=== PATIENT | female | born 1945 | race Caucasian/White ===

== ENCOUNTER 2016-06-20 11:17 | Emergency (ER) | payer MEDICARE, OTHER ==
[~2016-06-20] VITALS: Ht 160 cm; Wt 57.2 kg
[~2016-06-20 11:17] MED LIST: BUDE0.5A ORAL INH; CALC-603 PO; CYAN1TAB46 PO; DILT120C47 PO; DOCU100C PO; GABA-336 PO; HYDR25CA PO; IPRA3AMP AEROSOL; OMEP40CA30 PO; UBID100C10 PO
[2016-06-20 11:18] VITALS: Ht 160 cm; Wt 57.2 kg
--- OUTSIDE RECORDS SUMMARY | 2016-06-20 11:29 | XMS REPORT | Continuity of Care Document ---
Author Author [facility] Organization [facility] Address Unknown Phone Unavailable Support Name Relationship Address Phone NEFTALI DHALIWAL Caregiver [address] [place] [address] Unavailable HUONG DINERO MD Caregiver [address] [place] [address] Unavailable GAYLASANDYON Next Of Kin [address] [place] [address] C Insurance Providers Guarantor Cleopatra Shukla Address [address] [place] [address] C Email [email or web address] [email or web address] Medicare Policy Number [id number] Subscriber's Name Cleopatra Shukla Relationship 18 Self Effective Date 12 [facility] Policy Number [id number] Subscriber's Name Cleopatra Shukla Relationship 18 Self Group Number [id number] Advance Directives Directive Response Recorded Date/Time Ordered Resuscitation Status Full Code 10/10/15 1:19pm Resuscitation Documents on File No 10/13/15 6:51am DPOA for Healthcare Only No 10/13/15 6:51am Living Will No 10/13/15 6:51am Problems Active Problems Medical Problem Onset Date Status Allergic dermatitis Unknown Acute Medications Current Home Medications Medication Dose Units Route Directions Days Qty Instructions Start Date Budesonide (Pulmicort) 0.5 Mg/2 Ml Inha 0.5 Mg Oral Inhalation Twice A Day 05/30/15 Calcium 500 Mg Tablet 500 Mg Oral Daily 06/15/12 Cyanocobalamin/Folic Acid (Vitamin Y40-Uewha Acid Tablet) 1 Each Tablet 1 Tab Oral Daily 05/30/15 Diltiazem Hcl (Cartia Xt) 120 Mg Cap.er.24h 120 Mg Oral Daily Docusate Sodium (Stool Softener) 100 Mg Capsule 100 Mg Oral Bedtime 05/30/15 Gabapentin 100 Mg Capsule 100 Mg Oral Bedtime 05/30/15 Hydroxyzine Pamoate (Vistaril) 25 Mg Capsule 1 Cap Oral Four Times Daily as needed for Itching 10 Capsule 05/30/15 Ipratropium/Albuterol Sulfate (Iprat-Albut 0.5-3(2.5) Mg/3 Ml) 3 Ml Ampul.neb 1 Unit Aerosol Tx. Twice A Day 05/30/15 Omeprazole (Prilosec) 40 Mg Capsule.dr 40 Mg Oral Daily 05/01/12 Ubidecarenone (Coq-10) 100 Mg Capsule 100 Mg Oral Daily 05/30/15 Past Home Medications Medication Directions Ordered Status Simvastatin 20 Mg Tablet, 20 Mg Oral Daily 03/24/10 Discontinued Social History Social History Problem Response Recorded Date/Time Onset Date Status Chewing Tobacco Status No 06/15/2012 9:44am Not Applicable Not Applicable Hx Substance Use No 10/13/2015 6:46am Not Applicable Not Applicable Hx Alcohol Use No 10/13/2015 6:46am Not Applicable Not Applicable Has the pt used tobacco in the last 12 months No 10/13/2015 6:46am Not Applicable Not Applicable Tobacco Usage none 05/30/2015 1:20pm Not Applicable Not Applicable Query Response Start Date Stop Date Smoking Status Former smoker Hospital Discharge Instructions No hospital discharge instructions. Plan of Care Discharge Date 10/13/15 9:10am Prescriptions See Medication Section Functional Status Query Response Date Recorded Ability to complete ADL's impeded by No change October 13, 2015 6:51am Allergies, Adverse Reactions, Alerts Allergen Type Severity Reaction Status Last Updated Aspirin Allergy Severe ANAPHYLACTIC SHOCK Active 05/30/15 Immunizations Query Response on File Recorded Date/Time Hx Influenza Vaccination Y DEC 2014 10/13/15 6:46am Hx Pneumococcal Vaccination Y 201310/13/15 6:46am Hx Tetanus, Diptheria, Pertussis NA 03/24/10 7:25am Hx Influenza Vaccination Y DEC 2014 10/13/15 6:46am Hx Tetanus, Diptheria, Pertussis NA 03/24/10 7:25am Influenza Vaccine Hx 201405/30/15 12:45pm Vital Signs Acute Vital Signs Vital Response Date/Time Temperature (Fahrenheit) 97.2 deg F (96.8 - 99.1) 10/13/2015 8:16am Temperature (Calculated Celsius) 36.07379 degrees C (36.0 - 37.3) 10/13/2015 8:16am Temperature Source Temporal 10/13/2015 8:16am Pulse Rate (adult) 80 bpm (60 - 100) 10/13/2015 9:00am Respiratory Rate 16 breaths/min (10 - 20) 10/13/2015 9:00am O2 Sat by Pulse Oximetry 92 % (90 - 100) 10/13/2015 9:00am Oxygen Delivery Method Room Air 10/13/2015 8:46am Oxygen Flow Rate 2.00 L/min 10/13/2015 8:30am Blood Pressure 111/78 mm Hg 10/13/2015 9:00am Blood Pressure Source Automatic Cuff 10/13/2015 8:56am Height (Feet) 5 feet 10/13/2015 6:25am Height (Inches) 3.00 inches 10/13/2015 6:25am Weight (Kilograms) 56.300 kg 10/13/2015 6:25am Body Mass Index (BMI) 22.0 10/13/2015 6:25am Results No known relevant diagnostic tests, laboratory data and/or discharge summary. Procedures Procedure Status Date Provider(s) DXA BONE DENSITY AXIAL Completed 09/25/15 Colonoscopy Completed 10/13/15 HUONG DINERO MD Encounters Encounter Location Arrival/Admit Date Discharge/Depart Date Attending Provider Departed [facility] 10/13/15 6:12am 10/13/15 9: 10am HUONG DINERO MD Registered Clinic [facility] 09/25/15 12:33pm NEFTALI DHALIWAL
--- OUTSIDE RECORDS SUMMARY | 2016-06-20 11:29 | XMS REPORT | Summary of Care ---
Author Author Yamilet Cornelius Organization Unknown Address [address], [place] [id number] Phone Unavailable Care Team Providers Care Baker Paint Name Role Phone Yamilet Cornelius Unavailable Unavailable Woodrow Padgett, Severo Unavailable Unavailable Naun Castaneda Unavailable Unavailable Unavailable Unavailable Functional Status Name Dates Details Functional status health issues are not documented Status: Name Dates Details Cognitive status health issues are not documented Status: Problems Name Dates Details Chronic obstructive pulmonary disease, unspecified COPD type (496, J44.9) Status: Active Restrictive lung disease (518.89, J98.4) Status: Active Nocturnal hypoxia (327.24, G47.34) Status: Active Medications Name Dates Details ProAir HFA 108 (90 Base) MCG/ACT Inhalation Aerosol Solution Jose Troy M.D. * Start 16-May-2015 Active Co Q 10 10 MG Oral Capsule * Refills: 0 Jose Troy M.D. Start 16-May-2015 Active Multi Vitamin Daily Oral Tablet * Refills: 0 Jose Troy M.D. Start 16-May-2015 Active Ipratropium-Albuterol 0.5-2.5 (3) MG/3ML Inhalation Solution INHALE 1 UNIT DOSE Daily PRN * Quantity: 1 Refills: 0 Yamilet Cornelius * Start 16-May-2015 Active 3 ML Plas Cont (30 Plas Conts) Neurontin 100 MG Oral Capsule * Refills: 0 Jose Troy M.D. Start 16-May-2015 Active Omeprazole 40 MG Oral Capsule Delayed Release * Refills: 0 Jose Troy M.D. Start 16-May-2015 Active Pulmicort 0.5 MG/2ML Inhalation Suspension * Refills: 0 Jose Troy M.D. Start 16-May-2015 Active Vitamin D3 2000 UNIT Oral Capsule * Refills: 0 Jose Troy M.D. Start 16-May-2015 Active Cartia XT 120 MG Oral Capsule Extended Release 24 Hour * Refills: 0 Jose Troy M.D. * Start 16-May-2015 Active Calcium 500 MG TABS TAKE 1 TABLET DAILY. * Refills: 0 Woodrow Padgett, Jose Elkins * Start 16-May-2015 Active Vitamin B-12 2500 MCG Sublingual Tablet Sublingual * Refills: 0 Woodrow Padgett, Jose Elkins * Start 16-May-2015 Active Brovana 15 MCG/2ML Inhalation Nebulization Solution use 1 vial in neb BID * Quantity: 1 Refills: 11 Jeannie P.A., Yamilet * Start 29-Apr-2016 Active 2 ML Plas Cont (60 Plas Conts) Allergies and Adverse Reactions Name Dates Details aspirin (Allergy) Status: Active Fluzone INJ (Allergy) Status: Active niacin (Allergy) Status: Active Procedures Procedure Dates Details History of Section History of Cholecystectomy Procedures not documented Immunization Name Dates Details Immunizations not documented Family History Name Dates Details Family history of malignant neoplasm (V16.9, Z80.9) Status: Active Family history of diabetes mellitus (V18.0, Z83.3) Status: Active Name Dates Details Family history of chronic obstructive pulmonary disease (V17.6, Z82.5) Status: Active Family history of congestive heart failure (V17.49, Z82.49) Status: Active Name Dates Details Family history of arthritis (V17.7, Z82.61) Status: Active Social History Name Dates Details - Status: Name Dates Details Former smoker Vital Signs Date Test Result Details 29-Apr-2016 10:27 BP Systolic 136 mm[Hg] Status: Comments: Location: ; Position: BP Diastolic 64 mm[Hg] Status: Comments: Location: ; Position: Heart Rate 84 /min Status: Comments: Location: ; Height 63 in Status: Weight 127 lb Status: Physical Findings 94 Status: Comments: O2 Saturation Body Mass Index Calculated 22.5 kg/m2 Status: Body Surface Area Calculated 1.59 m2 Status: Results Date Description Value Details Results not documented Plan of Care Name Dates Details Planned Observations Planned Goals not documented Planned Encounters Appointment; Provider: Capri Cadena A.P.R.N. On 22-Jul-2016 10:30 Interventions Provided Medication Changes* Brovana 15 MCG/2ML Inhalation Nebulization Solution - Start * Ipratropium-Albuterol 0.5-2.5 (3) MG/3ML Inhalation Solution - Renew with Changes Instructions Name Dates Details Instructions not documented Encounters Appointment; Jose Troy M.D. Encounter Diagnosis: Problem not documented On 18-Jul-2015 11:45 Appointment; Jose Troy M.D. Encounter Diagnosis: Problem not documented On 16-May-2015 14:00
--- OUTSIDE RECORDS SUMMARY | 2016-06-20 11:30 | XMS REPORT | Summary of Care ---
Author Author Jose Troy M.D. Organization Unknown Address [address], [place] [id number] Phone Unavailable Care Team Providers Care Business Administrator Name Role Phone Woodrow Padgett, O Unavailable Unavailable Naun Castaneda PP Unavailable Unavailable Unavailable Functional Status Functional Status Health Issues* Name Dates Details Functional status health issues are not documented Status: Cognitive Status Health Issues* Name Dates Details Cognitive status health issues are not documented Status: Problems Name Dates Details Restrictive lung disease (518.89, J98.4) Status: Active Chronic obstructive pulmonary disease, unspecified COPD type (496, J44.9) Status: Active Medications Name Dates Details ProAir HFA 108 (90 Base) MCG/ACT Inhalation Aerosol Solution Jose Troy M.D.* Started 16-May-2015 ActiveCo Q 10 10 MG Oral Capsule * Refills: 0 Jose Troy M.D.* Started 16-May-2015 ActiveMulti Vitamin Daily Oral Tablet * Refills: 0 Jose Troy M.D.* Started 16-May-2015 ActiveIpratropium-Albuterol 0.5-2.5 (3) MG/3ML Inhalation Solution * Refills: 0 Jose Troy M.D.* Started 16-May-2015 ActiveNeurontin 100 MG Oral Capsule * Refills: 0 Jose Troy M.D.* Started 16-May-2015 ActiveOmeprazole 40 MG Oral Capsule Delayed Release * Refills: 0 Jose Troy M.D.* Started 16-May-2015 ActivePulmicort 0.5 MG/2ML Inhalation Suspension * Refills: 0 Jose Troy M.D.* Started 16-May-2015 ActiveVitamin D3 2000 UNIT Oral Capsule * Refills: 0 Jose Troy M.D.* Started 16-May-2015 ActiveCartia XT 120 MG Oral Capsule Extended Release 24 Hour * Refills: 0 Jose Troy M.D.* Started 16-May-2015 ActiveCalcium 500 MG Oral Tablet TAKE 1 TABLET DAILY. * Refills: 0 Jose Troy M.D.* Started 16-May-2015 ActiveVitamin B-12 2500 MCG Sublingual Tablet Sublingual * Refills: 0 Jose Troy M.D.* Started 16-May-2015 Active Allergies and Adverse Reactions Name Dates Details aspirin Status: Active Fluzone INJ Status: Active niacin Status: Active Procedures Procedure Dates Details History of Cholecystectomy History of Section Procedures not documented Immunization Name Dates Details Immunizations not documented Family History Mother* Name Dates Details Family history of malignant neoplasm (V16.9, Z80.9) Status: Active Family history of diabetes mellitus (V18.0, Z83.3) Status: Active Father* Name Dates Details Family history of congestive heart failure (V17.49, Z82.49) Status: Active Family history of chronic obstructive pulmonary disease (V17.6, Z82.5) Status: Active Brother* Name Dates Details Family history of arthritis (V17.7, Z82.61) Status: Active Social History Name Dates Details Smoking Status* Former smoker Vital Signs Date Test Result Details 18-Jul-2015 11:31 BP Systolic 129 mm[Hg] Status: BP Diastolic 68 mm[Hg] Status: Heart Rate 75 /min Status: Weight 129 lb Status: O2 SAT 94 % Status: Body Mass Index Calculated 22.85 kg/m2 Status: Body Surface Area Calculated 1.6 m2 Status: Results Date Description Value Details Results not documented Plan of Care Planned Observations* Name Dates Details Planned Goals not documented Goal Instructions * Instructions not documented Encounters Appointment; Jose Troy Encounter Diagnosis: Problem not documented On 18-Jul-2015 11:45 Appointment; Jose Troy Encounter Diagnosis: Problem not documented On 16-May-2015 14:00
--- NOTE | 2016-06-20 11:55 | NUR ---
OXYGEN PT STATES SHE WAS FEELING SHORT OF BREATH SO SHE PUT HERSELF ON HER OWN OXYGEN. O2 SATS PRIOR TO AND NOW ON O2 HAVE HAD NO CHANGES BUT HEARTRATE WENT UP AND PT APPEARS ANXIOUS. PT IS PLACED ON [facility] O2 AT THIS TIME.
[2016-06-20] MEDS ORDERED: CALCIUM PO (11:57)
[2016-06-20] MEDS ORDERED: ALEN70TA48 PO (11:57)
[2016-06-20] MEDS ORDERED: UBID200C15 PO (11:58)
[2016-06-20] MEDS ORDERED: CHOL20002 PO (11:59)
[2016-06-20] MEDS ORDERED: MULT-933 PO (12:00)
[2016-06-20] MEDS ORDERED: ALBU18HF2 ORAL INH (12:01)
[2016-06-20] MEDS ORDERED: CYAN25002 PO (12:01)
[2016-06-20] MEDS ORDERED: BUDE0.5A ORAL INH (12:02)
[2016-06-20 12:10] LABS: BASOPHILS # (AUTO) 0.1 T/MM3 (0-0.2); BASOPHILS % (AUTO) 0.9 % (0-2); EOSINOPHILS # (AUTO) 0.3 T/MM3 (0-0.5); EOSINOPHILS % (AUTO) 3.6 % (0-4); HGB - HEMOGLOBIN 14.9 GM/DL (12-16); IMMATURE GRANULOCYTE # (AUTO) 0.03 T/MM3 (0.00-0.03); IMMATURE GRANULOCYTE % (AUTO) 0.4 % (0.0-0.5); LYMPHOCYTES # (AUTO) 1.1 T/MM3 (1-4.8); LYMPHOCYTES % (AUTO) 13.9 % (23-45); MEAN CORPUSCULAR HGB 29.6 UUG (26-34); MEAN CORPUSCULAR HGB CONC(MCHC 33.1 GM/DL (31-37); MEAN CORPUSCULAR VOLUME 89.5 UM3 (80-100); MEAN PLATELET VOLUME 9.1 UM3 (9.4-12.4); MONOCYTES # (AUTO) 0.6 T/MM3 (0-0.8); MONOCYTES % (AUTO) 7.7 % (0-9.0); NEUTROPHILS #(AUTO)-ABSOLUTE 5.7 T/MM3 (1.8-7.7); NEUTROPHILS % (AUTO) 73.5 % (33-66); RED BLOOD COUNT 5.03 M/MM3 (4.00-5.20); WBC - WHITE BLOOD COUNT 7.7 T/MM3 (4.5-11.0)
--- NOTE | 2016-06-20 12:17 | NUR ---
XRAY PT TO XRAY BY CART AT THIS TIME.
[2016-06-20 12:21] LABS: ALBUMIN 4.4 G/DL (3.5-5.0); ALBUMIN/GLOBULIN RATIO 1.3 RATIO (1.1-2.2); ALKALINE PHOSPHATASE 73 U/L (38-126); ALT (SGPT) 63 U/L (9-52); ANION GAP 15 MEQ/L (5-15); AST (SGOT) 50 U/L (14-36); BUN/CREATININE RATIO 17 RATIO (6-26); CALCIUM 9.8 MG/DL (8.4-10.2); CHLORIDE 104 MEQ/L (98-107); CO2 - CARBON DIOXIDE 29 MEQ/L (22-30); CREATININE 0.9 MG/DL (0.7-1.2); GLOMERULAR FILTRATION RATE 62; GLUCOSE 109 MG/DL (65-110); POTASSIUM 3.8 MEQ/L (3.6-5); SODIUM 148 MEQ/L (134-144); TOTAL PROTEIN 7.9 G/DL (6.3-8.2)
--- NOTE | 2016-06-20 12:25 | NUR ---
RETURN PT RETURNED FROM XRAY AT THIS TIME.
--- NOTE | 2016-06-20 12:44 | NUR ---
PROVIDER DR. GALLARDO AT BEDSIDE.
--- NOTE | 2016-06-20 12:51 | ERPDOC ---
Departure Disposition Decision Date: Jun 20, 2016 Disposition Decision Time: 13:22 Disposition: 01 DISCHARGED HOME, SELF-CARE Impression Impression Impression: Primary Impression: COPD with acute exacerbation Severity: Mild Condition: Improved Seen By: Physician only Referrals: NEFTALI DHALIWAL (Family) 2 Days Patient Instructions: COPD (Chronic Obstructive Pulmonary Disease) (ED) Problems/Meds/Labs Reviewed?: Yes Medications reviewed and manag: Yes Follow up care ordered?: Yes Mental Status: Alert, Oriented Scripts Levofloxacin (Levaquin) 750 Mg Tablet 1 TAB PO DAILY for 7 Days, #7 TAB 0 Refills Prov: LASHANDA GALLARDO DO 06/20/16 Prednisone (Prednisone) 20 Mg Tablet 40 MG PO DAILY for 5 Days, #10 TAB 0 Refills Take daily each morning Prov: LASHANDA GALLARDO DO 06/20/16 HPI - General Medical General Chief Complaint: Dyspnea/Respdistress Stated Complaint: POSS PNEUMONIA, COPD, SOB Time Seen by Provider: 11:45 Source: patient Exam Limitations: no limitations HPI - General Medical Initial Comments 71-year-old female presents to emergency department with a chief complaint of cough and shortness of breath. Patient has a history of COPD and feels like she is having a typical COPD the exacerbation. She denies any pain or discomfort. Patient's cough is productive of clear phlegm. Patient notes that her symptoms improve with the use of her nebulizers at home. She denies any other complaints or associated symptoms. She was at home when her symptoms began. Symptoms have been persistent in nature since onset. Symptoms have had a gradual progression in nature. She does use oxygen at 2 L nasal cannula as needed at home. Occurred At: home Onset: Gradual Allergies: Coded Allergies: aspirin (Verified Allergy, Severe, ANAPHYLACTIC SHOCK, 05/30/15) Past History Past Medical History Metabolic: hypercholesterolemia Respiratory: COPD Surgical History Denies Surgeries Family History Family History: Negative Vaccines Hx Influenza Vaccination: Yes (DEC 2014) Hx Pneumococcal Vaccination: Yes (2013) Social History Smoking Status: Former smoker Does patient use chewing tobac: No Substance Use Type: does not use Alcohol Intake: none Review of Systems Constitutional Constitutional: DENIES: chills, fever Eyes General: DENIES: erythema, exudate Lids/Accessories: DENIES: erythema, swelling Vision: DENIES: acuity, blurring ENMT Ears: DENIES: drainage, pain Hearing: DENIES: hearing loss Balance: DENIES: ataxia, falling to one side Sinuses: DENIES: congestion, pain Nose: DENIES: nosebleeds, pain Mouth/Throat: DENIES: painful swallowing, sore throat Teeth: DENIES: pain Jaw: DENIES: pain Cardiovascular Cardiac: DENIES: chest pain, dyspnea on exertion Rhythm/Rate: DENIES: irregular beat, palpitations Vascular: DENIES: pedal edema, unilateral swelling Pulmonary Respiratory: cough, dyspnea, sputum, DENIES: pleuritic chest pain GI Upper Abdomen: DENIES: nausea, pain, vomiting Lower Abdomen: DENIES: diarrhea, pain General: DENIES: dysuria, frequency Musculoskeletal General: DENIES: joint pain, tenderness Integumentary Skin: DENIES: itching, rash Neurological General: DENIES: headache, numbness, weakness Psychiatric Psychiatric: DENIES: emotional instability, suicidal ideation/attempt Endocrine Endocrine: DENIES: polydipsia, polyphagia Hematologic/Lymphatic Hematologic/Lymphatic: DENIES: frequent nosebleeds, lymphadenopathy Allergic/Immunological Allergic/Immunoligical: DENIES: allergic reactions, hives Physical Exam General General Nourishment: well nourished, well developed, appears stated age, no acute distress, adult General Body Habitus: well groomed Vitals and Pain First Documented Vital Signs Date Time Temp Pulse Resp B/P Pulse Ox O2 Delivery O2 Flow Rate FiO2 06/20/16 11:18 98.4 99 20 174/79 98 Nasal Cannula 2.00 Weight: Kilograms: 57.200 Height (feet): 5 Height (inches): 3.00 Triage Pain Scale: RN VS reviewed by Provider: Yes Normal Exams: Head: Normocephalic w/o trauma Eyes: Pupils are PERRLA w/ EOMI, No scleral icterus, irritation, or foreign bodies noted ENMT: No facial trauma, nasal exudates, pharyngeal erythema, or exudates are noted Dental: No fractured, loose, or missing teeth noted Neck: Full range of motion, without adenopathy, JVD, bruits or thyromegaly Chest/Resp: with good airflow, and symmetry bilaterally CV: Regular rate and rhythm, without murmur or gallop, Pulses 2+ all extremities, capillary refill, <2 seconds all ext., no pedal edema noted Abdomen: Bowel sounds positive, soft, non-tender, non-distended, no hepatosplenomegaly, masses or bruits noted Lymphatic: No lymphadenopathy, or lymphedema noted Musculoskeletal: No tenderness, or deformity noted, good range of motion, all extremities Integumentary: No rashes, hives, or bruising noted, hair and nails, without abnormality Neurologic: Patient is alert, and oriented, cranial nerves, motor/sensory/ cerebellar, exams w/o gross deficits, to observation Psychiatric: Patient exhibits, appropriate attention, emotion and affect Respiratory (brief) Comments Scattered bilateral wheezes. Differential Diagnoses Considering: Metabolic, Pneumonia, Other (COPD/URI) Progress Results/Orders Orders Procedure Category Date Status Time Cbc W/Auto LAB 06/20/16 Complete Diff-Reflex Manual Cmp - Comprehensive LAB 06/20/16 Complete Metabolic Troponin I W LAB 06/20/16 Complete Hemolysis Index EKG EKG 06/20/16 Taken Chest, Pa & Lateral RAD 06/20/16 Taken 11:47 Albuterol/Ipratropium PHA 06/20/16 Complete (Duoneb) 13:00 Prednisone PHA 06/20/16 Complete (Prednisone) 13:30 Levofloxacin PHA 06/20/16 Complete (Levaquin 750 Mg 13:30 Lab Results Laboratory Tests Test 06/20/16 11:59 White Blood Count 7.7T/MM3 Red Blood Count 5.03M/MM3 Hemoglobin 14.9GM/DL Hematocrit 45.0% Mean Corpuscular Volume 89.5UM3 Mean Corpuscular Hemoglobin 29.6UUG Mean Corpuscular Hemoglobin Concent 33.1GM/DL RDW Standard Deviation 42.3FL Platelet Count 223T/MM3 Mean Platelet Volume 9.1UM3 Immature Granulocyte % (Auto) 0.4% Neutrophils (%) (Auto) 73.5% Lymphocytes (%) (Auto) 13.9% Monocytes (%) (Auto) 7.7% Eosinophils (%) (Auto) 3.6% Basophils (%) (Auto) 0.9% Absolute Immature Granulocyte (auto 0.03T/MM3 Absolute Neutrophils (auto) 5.7T/MM3 Absolute Lymphocytes (auto) 1.1T/MM3 Absolute Monocytes (auto) 0.6T/MM3 Absolute Eosinophils (auto) 0.3T/MM3 Absolute Basophils (auto) 0.1T/MM3 Turbidity < 20 Sodium Level 148MEQ/L Potassium Level 3.8MEQ/L Chloride Level 104MEQ/L Carbon Dioxide Level 29MEQ/L Anion Gap 15MEQ/L Blood Urea Nitrogen 15.0MG/DL Creatinine 0.9MG/DL Glomerular Filtration Rate Calc 62 BUN/Creatinine Ratio 17RATIO Glucose Level 109MG/DL Calculated Osmolality 286MOSM/KG Calcium Level 9.8MG/DL Total Bilirubin 0.70MG/DL Icterus Index < 2 Aspartate Amino Transf (AST/SGOT) 50U/L Alanine Aminotransferase (ALT/SGPT) 63U/L Alkaline Phosphatase 73U/L Troponin I < 0.012ng/ml Total Protein 7.9G/DL Albumin 4.4G/DL Globulin 3.5G/DL Albumin/Globulin Ratio 1.3RATIO Chemistry Specimen Hemolysis < 15 Medications Current ED Medications Albuterol/ Ipratropium (Duoneb) 3 ml O ONCE AEROSOL Last administered on 13:00; Start 06/20/16 at 13:00; Stop 06/20/16 at 13:01; Status DC Prednisone (PredniSONE) 50 mg O ONCE PO Last administered on 06/20/16 13:35; Start 06/20/16 at 13:30; Stop 06/20/16 at 13:31; Status DC Levofloxacin (LEVAQUIN 750 mg tablet) 750 mg O ONCE PO Last administered on 13:34; Start 06/20/16 at 13:30; Stop 06/20/16 at 13:31; Status DC Progress Progress Labs / imaging were discussed in detail with the patient and family and questions are answered. Patient is given a nebulized aerosol treatment in the emergency department with improvement of symptoms. Patient's wheezing has alleviated. Patient is given prednisone 40 mg by mouth 1 in the emergency department. She is given Levaquin 750 mg by mouth times one. Patient is discharged home in improved condition. Patient's vital signs are stable. Patient is not hypoxic in the emergency department and is using her home 2L NC at her baseline rate. She is 96% on room air in the ED as well. Patient is in agreement with the current plan of management. She is discharged home in improved condition. Patient is to follow up as instructed. Patient is to return to the emergency Department if her condition worsens or changes in any manner. She is in agreement with the current plan of management. Prescriptions for Levaquin and prednisone are provided. Patient is to continue using her home nebulized DuoNeb's as instructed. EKG EKG : Rate: >100 Rhythm: sinus [place]: normal QRS: normal Intervals: normal ST/T: normal Interpreted by: signing physician Xray Xray : Xray: CXR PA/Lat Interpretation: Normal, Interpreted by LASHANDA Vazquez DO Jun 20, 2016 12:51
--- NOTE | 2016-06-20 12:59 | NUR ---
RT AT BEDSIDE FOR DUONEB TX
[2016-06-20] MEDS ORDERED: ALBUTEROL/IPRATROPIUM INHAL. 2.5mg-0.5mg/3ml Neb. AEROSOL ONE (13:00)
[2016-06-20] MEDS ORDERED: LEVO750T20 PO (13:25)
[2016-06-20] MEDS ORDERED: PRED20TA PO (13:25)
[2016-06-20] MEDS ORDERED: LEVOFLOXACIN 750 MG TABLET PO ONE (13:30)
[2016-06-20] MEDS ORDERED: PredniSONE 10 MG TABLET PO ONE (13:30)
[2016-06-20 13:39] VITALS: BP 130/61; PULSE 105; RESP 20; TEMP 98.4; O2SAT 95
--- NOTE | 2016-06-20 13:39 | NUR ---
DISCHARGE WRITTEN INSTRUCTIONS WITH PREDNISONE AND LEVAQUIN RX REVIEWED AND SENT WITH PT. PT VERBALIZES UNDERSTANDING OF DI AND MEDICATIONS, DENIES QUESTIONS. REPORTS BREATHING EFFORTS HAVE IMPROVED AFTER DUONEB TX; HOWEVER, PT STILL FEELS NEEDING TO WEAR HOME O2. PT AMBULATES OUT OF ER WITH STEADY GAIT ACCOMP BY AT THIS TIME.
--- NOTE | 2016-06-21 08:20 | DI ---
INDICATION: ITS.REASON: cough PROCEDURE: CHEST 2-VIEWS UPRIGHT (PA \T\ LAT) Encounter: Initial COMPARISON: Chest CT dated February 25, 2014 FINDINGS: The lungs are clear without evidence of focal abnormal airspace opacity. There is no pleural effusion or pneumothorax. Hyperinflation consistent with COPD. The heart size, mediastinal contours and pulmonary vascularity are within normal limits. There is no significant skeletal abnormality. IMPRESSION: No acute cardiopulmonary disease. COPD. .
== END 2016-06-20 13:39 | disposition home or self-care (01) ==
LOC: ED 11:17
DX: J44.1 Chronic obstructive pulmonary disease with (acute) exacerbation (principal); Z87.891 Personal history of nicotine dependence
CPT/HCPCS: 36415; 71020; 80053; 84484; 85025; 93005; 94640; 99283; A9270; J7512